=== PATIENT | male | born 1965 | race American Indian/Alaskan Native ===

== ENCOUNTER 2017-04-11 05:50 | Emergency (ER) | payer BC ==
[2017-04-11 07:32] LABS: Alanine Aminotransferase 20 units/L (7-56); Albumin 4.3 g/dL (3.9-5); BUN/Creatinine Ratio 8; Blood Urea Nitrogen 6 mg/dL (7-17); Calcium 8.7 mg/dL (8.4-10.2); Hemolysis Index 0
[2017-04-11 07:35] LABS: Basophils % (Auto) 0.5 % (0.0-1.8); Eosinophils % (Auto) 0.6 % (0.0-4.3); Hematocrit 40.9 % (30.3-42.9); Hemoglobin 13.8 gm/dl (10.1-14.3); Lymphocytes # (Auto) 1.4 K/mm3 (1.2-5.4); Lymphocytes % (Auto) 17.3 % (13.4-35.0); Mean Corpuscular HGB Conc 34 % (30-34); Mean Corpuscular Hemoglobin 26 pg (28-32); Mean Corpuscular Volume 78 fl (79-97); Monocytes # (Auto) 0.5 K/mm3 (0.0-0.8); Monocytes % (Auto) 6.3 % (0.0-7.3); Platelet Count 343 K/mm3 (140-440); Red Blood Count 5.23 M/mm3 (3.65-5.03); Red Cell Distribution Width 14.7 % (13.2-15.2)
[2017-04-11] MEDS ORDERED: TORADOL IV ONE (10:24)
[2017-04-11] MEDS ORDERED: ZOFRAN IV ONE (10:24)
--- NOTE | 2017-04-11 10:29 | Emergency Department Report ---
HPI - General Chief Complaint: Abdominal Pain Time Seen by Provider: 04/11/17 10:11 - HPI HPI: Room 8 The patient is a 51-year-old male presenting with a chief complaint of left flank pain. Patient states 1 week history of intermittent pain along the left ribs described as aching in nature. Patient admits to nausea and vomiting. Patient denies fever, dysuria or hematuria. The patient states he's tried Tylenol and Goody powders but it has not helped. Patient states his pain was a 9/10 upon arrival and now is decreased to 5/10. 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 Patient states he recently flew to [place]. Patient denies shortness of breath but admits to an occasional cough for one week. Location: Left flank Duration: Intermittent times one week Quality: Aching Severity: 5/10 Modifying factors: [see above] Context: [see above] Mode of transportation: The patient drove himself to the emergency department and there are no visitors present ED Past Medical Hx - Past Medical History Previous Medical History?: No Additional medical history: Cholelithiasis - Surgical History Past Surgical History?: No Additional Surgical History: Right hand surgery - Family History Family history: no significant - Social History Smoking Status: Never Smoker Substance Use Type: None (denies illicit drug use), Alcohol (occasional) - Medications Home Medications: Home Medications Medication Instructions Recorded Confirmed Last Taken Type HYDROcodone/APAP 5-325 [[place] 1 - 2 each PO Q6HR PRN #14 tablet 04/11/17 Unknown Rx 5/325] Levofloxacin [Levaquin] 750 mg PO QDAY #10 tablet 04/11/17 Unknown Rx metroNIDAZOLE [Flagyl] 500 mg PO Q6H #40 tablet 04/11/17 Unknown Rx ED Review of Systems ROS: Stated complaint: COLD SX Other details as noted in HPI Constitutional: denies: fever Respiratory: denies: shortness of breath Cardiovascular: denies: chest pain Gastrointestinal: abdominal pain, nausea, vomiting Genitourinary: denies: hematuria Musculoskeletal: denies: back pain Physical Exam - Physical Exam Vital Signs: Vital Signs 04/11/17 06:25 Temperature 99.0 F Pulse Rate 79 Respiratory 18 Rate Blood Pressure 146/78 O2 Sat by Pulse 94 Oximetry Physical Exam: GENERAL: The patient is well-developed well-nourished male sitting in chair not appear to be in acute distress HEENT: Normocephalic. Atraumatic. Extraocular motions are intact. Patient has moist mucous membranes. NECK: Supple. No meningitic signs are noted. There is no adenopathy noted. CHEST/LUNGS: Clear to auscultation. There is no respiratory distress noted. HEART/CARDIOVASCULAR: Regular. There is no tachycardia. There is no gallop rub or murmur. ABDOMEN: Abdomen is soft, nontender. Patient has normal bowel sounds. There is no abdominal distention. SKIN: There is no rash. There is no edema. There is no diaphoresis. NEURO: The patient is awake, alert, and oriented. The patient is cooperative. The patient has normal speech and gait. MUSCULOSKELETAL: There is no CVA tenderness. There is no evidence of acute injury. ED Course Vital Signs 04/11/17 06:25 Temperature 99.0 F Pulse Rate 79 Respiratory 18 Rate Blood Pressure 146/78 O2 Sat by Pulse 94 Oximetry ED Medical Decision Making - Lab Data Result diagrams: 04/11/17 06:57 04/11/17 06:57 Laboratory Tests 04/11/17 04/11/17 04/11/17 06:57 06:57 06:57 WBC 8.0 RBC 5.23 H Hgb 13.8 Hct 40.9 MCV 78 L MCH 26 L MCHC 34 RDW 14.7 Plt Count 343 Lymph % (Auto) 17.3 [place] % (Auto) 6.3 Eos % (Auto) 0.6 Baso % (Auto) 0.5 Lymph # 1.4 [place] # 0.5 Eos # 0.0 Baso # 0.0 Seg Neutrophils % 75.3 H Seg Neutrophils # 6.0 Sodium 137 Potassium 3.8 Chloride 100.7 Carbon Dioxide 27 Anion Gap 13 BUN 6 L Creatinine 0.8 Estimated GFR > 60 BUN/Creatinine Ratio 8 Glucose 118 H Calcium 8.7 Total Bilirubin 0.40 AST 12 ALT 20 Alkaline Phosphatase 94 Total Creatine Kinase CK-MB (CK-2) CK-MB (CK-2) Rel Index Troponin T Total Protein 7.0 Albumin 4.3 Albumin/Globulin Ratio 1.6 Lipase 13 Urine Color Urine Turbidity Urine pH Ur Specific [place] Urine Protein Urine Glucose (UA) Urine Ketones Urine Blood Urine Nitrite Urine Bilirubin Urine Urobilinogen Ur Leukocyte Esterase Urine WBC (Auto) Urine RBC (Auto) Urine Mucus 04/11/17 04/11/17 06:57 07:28 WBC RBC Hgb Hct MCV MCH MCHC RDW Plt Count Lymph % (Auto) [place] % (Auto) Eos % (Auto) Baso % (Auto) Lymph # [place] # Eos # Baso # Seg Neutrophils % Seg Neutrophils # Sodium Potassium Chloride Carbon Dioxide Anion Gap BUN Creatinine Estimated GFR BUN/Creatinine Ratio Glucose Calcium Total Bilirubin AST ALT Alkaline Phosphatase Total Creatine Kinase 171 H CK-MB (CK-2) 1.6 CK-MB (CK-2) Rel Index 0.9 Troponin T < 0.010 Total Protein Albumin Albumin/Globulin Ratio Lipase Urine Color Straw Urine Turbidity Clear Urine pH 6.0 Ur Specific [place] 1.050 H Urine Protein <15 mg/dl Urine Glucose (UA) Neg Urine Ketones Neg Urine Blood Sm Urine Nitrite Neg Urine Bilirubin Neg Urine Urobilinogen < 2.0 Ur Leukocyte Esterase Neg Urine WBC (Auto) < 1.0 Urine RBC (Auto) 1.0 Urine Mucus Few - EKG Data -: EKG Interpreted by Ok EKG shows normal: sinus rhythm Rate: normal - EKG Data When compared to previous EKG there are: previous EKG unavailable Interpretation: nonspecific ST-T wave [place] (T-wave inversion in lead 3) - Radiology Data Radiology results: report reviewed (CT chest, CT abdomen and pelvis), image reviewed (CT chest, CT abdomen and pelvis) CTA CHEST: HISTORY: Left chest pain. COMPARISON: none. TECHNIQUE: Helical CT in 1.25mm intervals following IV contrast. Pulmonary embolus protocol. Sagittal and coronal reformatted images. Rotational MIP images. FINDINGS: Contrast bolus is satisfactory. No pulmonary embolus is identified. Thyroid gland: Normal. Tracheobronchial tree: Normal. Esophagus: Normal. Heart: Normal. Pericardium: Normal. Mediastinum: Normal. Lung [place]: normal. Pleural Spaces: Normal. Musculoskeletal: Normal. IMPRESSION: No evidence for pulmonary embolus. Unremarkable CT chest with contrast. Transcribed By: TTR Dictated By: ROSSY NEGRETE JR, MD Electronically Authenticated By: ROSSY NEGRETE JR, MD Signed Date/Time: 04/11/171123 DD/ 23 TD/TT: 04/11/171123 CT ABDOMEN PELVIS WITHOUT CONTRAST: HISTORY: Left flank pain. COMPARISON: none. TECHNIQUE: Helical CT in 1.25mm intervals without IV contrast. Sagittal and coronal reconstructions. FINDINGS: Lung bases: Normal. Liver: Normal. Biliary system: Normal. Pancreas: Normal. Spleen: Normal. Kidneys/ureters/bladder: Normal. Adrenal glands: Normal. Aorta: Normal. Intestines: There are a few scattered diverticula in the sigmoid colon. Minimal inflammatory changes are identified in this area. No free air or abscess. Appendix: Normal. Pelvic viscera: Normal. Ascites: None. Adenopathy: None. Musculoskeletal: Normal. IMPRESSION: Very early acute sigmoid diverticulitis is suspected. Transcribed By: TTR Dictated By: ROSSY NEGRETE JR, MD Electronically Authenticated By: ROSSY NEGRETE JR, MD Signed Date/Time: 04/11/171125 DD/ 24 TD/TT: 04/11/171125 - Differential Diagnosis renal colic, PE, ACS, peptic ulcer disease Critical care attestation.: If time is entered above; I have spent that time in minutes in the direct care of this critically ill patient, excluding procedure time. ED Disposition Clinical Impression: Acute abdominal pain, Diverticulitis Disposition: - TO HOME OR SELFCARE Is pt being admited?: No Does the pt Need Aspirin: No Condition: Stable Instructions: Diverticulitis (ED) Additional Instructions: Return to the emergency department immediately should you develop worsening symptoms, fever, inability to tolerate food or liquid or any other concerns. Prescriptions: HYDROcodone/APAP 5-325 [[place] 5/325] 1 - 2 each PO Q6HR PRN #14 tablet PRN Reason: Pain Levofloxacin [Levaquin] 750 mg PO QDAY #10 tablet metroNIDAZOLE [Flagyl] 500 mg PO Q6H #40 tablet Referrals: PRIMARY CAREMD [Primary Care Provider] - 3-5 Days ALTON GARY MD [Staff Physician] - 3-5 Days (Dr. Gary is a watch repair technician. Please follow up with him for further evaluation) Time of Disposition: 12:44
[2017-04-11 10:57] LABS: Creatine Kinase MB 1.6 ng/mL (0.0-4.0)
--- NOTE | 2017-04-11 11:31 | Cat Scan Report ---
CTA CHEST: HISTORY: Left chest pain. COMPARISON: none. TECHNIQUE: Helical CT in 1.25mm intervals following IV contrast. Pulmonary embolus protocol. Sagittal and coronal reformatted images. Rotational MIP images. FINDINGS: Contrast bolus is satisfactory. No pulmonary embolus is identified. Thyroid gland: Normal. Tracheobronchial tree: Normal. Esophagus: Normal. Heart: Normal. Pericardium: Normal. Mediastinum: Normal. Lung [place]: normal. Pleural Spaces: Normal. Musculoskeletal: Normal. IMPRESSION: No evidence for pulmonary embolus. Unremarkable CT chest with contrast.
--- NOTE | 2017-04-11 11:33 | Cat Scan Report ---
CT ABDOMEN PELVIS WITHOUT CONTRAST: HISTORY: Left flank pain. COMPARISON: none. TECHNIQUE: Helical CT in 1.25mm intervals without IV contrast. Sagittal and coronal reconstructions. FINDINGS: Lung bases: Normal. Liver: Normal. Biliary system: Normal. Pancreas: Normal. Spleen: Normal. Kidneys/ureters/bladder: Normal. Adrenal glands: Normal. Aorta: Normal. Intestines: There are a few scattered diverticula in the sigmoid colon. Minimal inflammatory changes are identified in this area. No free air or abscess. Appendix: Normal. Pelvic viscera: Normal. Ascites: None. Adenopathy: None. Musculoskeletal: Normal. IMPRESSION: Very early acute sigmoid diverticulitis is suspected.
[2017-04-11 12:39] LABS: Bilirubin,Urine NEG (Negative); Blood,Urine SM (Negative); Color,Urine Straw (Yellow); Mucus,Urine FEW /HPF; Nitrite,Urine NEG (Negative); Protein,Urine <15 mg/dL mg/dL (Negative); Urobilinogen,Urine < 2.0 mg/dL (<2.0); WBC,Urine < 1.0 /HPF (0.0-6.0)
[2017-04-11 12:59] VITALS: BP 144/78
== END 2017-04-11 13:08 | disposition home or self-care (01) ==
LOC: ED 05:50
DX: K57.92 Diverticulitis of intestine, part unspecified, without perforation or abscess without bleeding (principal)
CPT/HCPCS: 36415; 71275; 74176; 80053; 81001; 82550; 82553; 83690; 84484; 85025; 93005; 93010; 96374; 96375; 99284; J1885; J2405; Q9967